=== PATIENT | male | born 1945 | race Caucasian/White ===

== ENCOUNTER → 2016-11-10 | Outpatient (CLI) | payer BC ==
[~2016-11-10] MED LIST: CIPR-255 PO; HYDR-5688 PO; [UNRECOGNIZED DRUG - CODE] PO
[2016-11-10 16:12] LABS: BASO % 0.7 %; BASO ABS # 0.03 K/uL (0-0.2); COMPLETE YES; EOS % 3.3 %; HEMATOCRIT 40.7 % (42-52); IG% 0.2 %; LYMPH % 41.4 %; LYMPH ABS # 1.74 K/uL (1.2-3.4); MEAN CELL VOLUME 93.1 fL (80-100); MEAN CORPUSCULAR HEMOGLOBIN 33.2 pg (25-34); MEAN CORPUSCULAR HGB CONC 35.6 g/dl (32-36); NEUT % 43.4 %; PLATELET COUNT 170 K/uL (130-400); RED BLOOD COUNT 4.37 M/uL (4.7-6.1)
[2016-11-10 18:20] LABS: ALT/SGPT 27 U/L (12-78); AST/SGOT 18 U/L (15-37); BLOOD UREA NITROGEN 19 mg/dl (7-18); BUN/CREATININE RATIO 17.2 (10-20); CARBON DIOXIDE 30 mmol/L (21-32); CHLORIDE 107 mmol/L (98-107); CHOLESTEROL 182 mg/dl (0-200); GLUCOSE 88 mg/dl (70-99); POTASSIUM 3.9 mmol/L (3.5-5.1); SODIUM 143 mmol/L (136-145)
[2016-11-10 18:32] LABS: ALB/GLOB RATIO 1.1 (0.9-2); ALKALINE PHOSPHATASE 99 U/L (45-117); CHOLESTEROL/HDL RATIO 4.6; HDL CHOLESTEROL 40 mg/dl; LDL CHOLESTEROL CALCULATED 96 mg/dl; TRIGLYCERIDES 230 mg/dl (0-150); VERY LOW DENSITY LIPOPROT CALC 46 mg/dl
--- NOTE | 2016-11-16 08:48 | CODING QUERY MEDICAL NECESSITY ---
SUPPORTING DIAGNOSIS NEEDED Dr. Muir, A supporting diagnosis is required for the test/procedure performed on this patient in order for us to be reimbursed by the patient's insurance. Please provide a supporting diagnosis for the following test/procedure listed below next to the test name along with your signature. *If there is no additional diagnosis for this patient that would support the following test/procedure please document that below next to the test/procedure. Test(s)/Procedure(s) that require a supporting diagnosis: * ([id number]) VITAMIN D ASSAY DIAGNOSIS: DATE OF SERVICE: 11/10/16 Provider Signature: Date: Thank you Devon Alston [facility] Information Management Once completed, please kindly fax back to [phone] For questions please call [phone]
== END | disposition home or self-care (01) ==
LOC: C.LABBC 10:33
PROVIDERS: ATTEND Physician Assistant Medical
DX: Z11.59 Encounter for screening for other viral diseases (principal); E78.5 Hyperlipidemia, unspecified; K22.70 Barrett's esophagus without dysplasia; K21.9 Gastro-esophageal reflux disease without esophagitis; E55.9 Vitamin D deficiency, unspecified

== ENCOUNTER → 2017-11-22 | Outpatient (CLI) | payer BC ==
--- NOTE | 2017-11-22 12:41 | DIAGNOSTIC IMAGING REPORT ---
(CHEST) THORAX WITHOUT CT DOSE: 383.93 mGy.cm CLINICAL HISTORY: 72 years-old Male with Z72.0 Tobacco useR91.1 Solitary pulmonary nodule. Follow-up study in a patient with pulmonary nodule TECHNIQUE: Multiaxial CT images of the chest were performed without contrast. A dose lowering technique was utilized adhering to the principles of ALARA. COMPARISON: Chest CT 02/15/2016, 02/13/2015, 02/13/2014 FINDINGS: No dominant thyroid nodule or pathologic adenopathy identified. Heart is normal in size without pericardial effusion. Coronary arterial disease. No thoracic aneurysm. No pneumothorax, pleural effusion or focal airspace consolidation. Linear subsegmental bibasilar opacities suggest areas of scarring/atelectasis. Minimal centrilobular emphysematous changes of the lung apices. Central airways are patent. 3 mm solid nodule of the right middle lobe, image 204 series 4 is unchanged dating back to CT chest 02/13/2014 suggesting benign etiology. No new or enlarging pulmonary nodules identified. Prior cholecystectomy. Hyperattenuating foci are seen near the diaphragmatic hiatus. No acute process of the imaged upper abdomen. Low attenuating lesions of the left hepatic lobe measuring up to 1.8 cm suggest hepatic cysts. Soft tissues are unremarkable. Bones appear intact. IMPRESSION: 1. No acute intrathoracic abnormality identified. 2. Stable size and appearance of the 3 mm solid nodule of the right middle lobe, stable dating back to 02/13/2014 suggesting benign etiology. No new or enlarging pulmonary nodules identified. 2. No pathologic adenopathy or focal airspace consolidation. Electronically signed by: Justice Young M.D. 11/22/2017 12:39 PM Dictated Date/Time: 11/22/2017 12:31 PM
== END | disposition home or self-care (01) ==
LOC: C.CTS 11:58
PROVIDERS: ATTEND Internal Medicine Geriatric Medicine
DX: Z72.0 Tobacco use (principal); R91.1 Solitary pulmonary nodule